=== PATIENT | male | born 1995 | race Caucasian/White ===

== ENCOUNTER 2019-05-14 15:09 | Outpatient (CLI) | payer OTHER, SELFPAY ==
--- NOTE | 2019-05-14 15:02 | DI.RAD_ITS ---
SYMPTOM/DIAGNOSIS: RT SHOULDER INJURY RIGHT SHOULDER: 05/14 Three views were obtained. No bony or soft tissue abnormality seen.
== END 2019-05-14 15:29 ==
PROVIDERS: Visit Provider Physician Assistant
DX: M25.511 Pain in right shoulder (principal); S49.91XA Unspecified injury of right shoulder and upper arm, initial encounter
CPT/HCPCS: 73030

== ENCOUNTER 2019-06-26 13:15 | Outpatient (CLI) | payer OTHER, SELFPAY ==
--- NOTE | 2019-06-26 13:09 | DI.RAD_ITS ---
EXAM: XR SHOULDER RT 1V INDICATION: SHOULDER INJURY. COMPARISON: XR shoulder RT complete 2+V from 05/14/2019 TECHNIQUE: 2D digital imaging was performed. A single axillary view was performed. FINDINGS: No fracture or dislocation is seen.
== END 2019-06-26 13:35 ==
PROVIDERS: PCP Specialist/Technologist Athletic Trainer; Visit Provider Student in an Organized Health Care Education/Training Program
DX: M25.511 Pain in right shoulder (principal); S49.91XA Unspecified injury of right shoulder and upper arm, initial encounter; M24.211 Disorder of ligament, right shoulder
CPT/HCPCS: 73020